=== PATIENT | female | born 1955 | race Hispanic/Latino ===

== ENCOUNTER 2016-09-16 20:28 | Emergency (ER) | payer OTHER, SELFPAY ==
[2016-09-16 21:03] VITALS: RESP 18
[2016-09-16] MEDS ORDERED: Sodium Chloride 0.9% 1,000 ML IV STA (21:19)
[2016-09-16 21:24] LABS: ADD MANUAL DIFF? NO
[2016-09-16 21:29] VITALS: TEMP 98.1
--- NOTE | 2016-09-16 21:32 | ED PDOC ---
Arrival/HPI - History of Present Illness Time/Duration: Prior to Arrival, < week Symptom Onset: Gradual Symptom Course: Unchanged Severity Level: Moderate <Kristofer Lynn - Last Filed: 09/16/16 21:29> <Almaz Olguin - Last Filed: 09/16/16 22:30> - General Chief Complaint: Dizziness/Lightheaded Time Seen by Provider: 09/16/16 21:02 - History of Present Illness Narrative History of Present Illness (Text): 09/16/16 21:29 This is a 61 year old female without PMH presenting to the ED for evaluation of dizziness x 2 days. The patient states that this is her second bout with dizziness. The first episode occurred 2 weeks ago. The patient notes on the initial episode she felt that the room was spinning around her, however, this time, the patient denies rotatory sensation. The patient notes that she feels unseady on her feet. The patient takes no medications at home regularly, however she took 1 dose of aspirin 81mg for the dizziness both yesterday and today without relief. The patient denies headache, fever, chills, changes in vision, chest pain, shortness of breath. (Kristofer Lynn) Past Medical History - Provider Review Nursing Documentation Reviewed: Yes - Travel History Have you recently traveled outside [place] w/in the past 3 mons?: No - Past History Past History: No Previous - Infectious Disease Hx of Infectious Diseases: None - Cardiac Hx Cardiac Disorders: No - Pulmonary Hx Respiratory Disorders: No - Neurological Hx Neurological Disorder: No - HEENT Hx HEENT Disorder: No - Renal Hx Renal Disorder: No - Endocrine/Metabolic Hx Endocrine Disorders: No - Hematological/Oncological Hx Blood Disorders: No - Integumentary Hx Dermatological Disorder: No - Musculoskeletal/Rheumatological Hx Musculoskeletal Disorders: No - Gastrointestinal Hx Gastrointestinal Disorders: No - Genitourinary/Gynecological Hx Genitourinary Disorders: No - Psychiatric Hx Psychophysiologic Disorder: No Hx Substance Use: No - Surgical History Hx Appendectomy: Yes Hx Tonsillectomy: Yes - Anesthesia Hx Anesthesia: Yes Hx Anesthesia Reactions: No <Kristofer Lynn - Last Filed: 09/16/16 21:29> Family/Social History - Physician Review Nursing Documentation Reviewed: Yes Family/Social History: No Known Family HX Smoking Status: Never Smoked Hx Alcohol Use: No Hx Substance Use: No <Kristofer Lynn - Last Filed: 09/16/16 21:29> Allergies/Home Meds <Kristofer Lynn - Last Filed: 09/16/16 21:29> <Almaz Olguin - Last Filed: 09/16/16 22:30> Allergies/Adverse Reactions: Allergies No Known Allergies Allergy (Verified 09/16/16 20:40) Review of Systems - Physician Review All systems were reviewed & negative as marked: Yes - Review of Systems Constitutional: absent: Fatigue, Fevers Eyes: absent: Vision Changes, Eye Pain ENT: absent: Hearing Changes, Tinnitus Respiratory: absent: SOB, Cough, Sputum Cardiovascular: absent: Chest Pain, Palpitations, Syncope Gastrointestinal: Nausea. absent: Abdominal Pain, Stool Changes, Constipation, Diarrhea, Vomiting, Appetite Changes Genitourinary Female: absent: Dysuria, Frequency Musculoskeletal: absent: Arthralgias, Back Pain Skin: absent: Rash, Pruritis Neurological: Dizziness, Disequilibrium. absent: Headache, Focal Weakness, Gait Changes, Speech Changes, Facial Droop, Seizure Endocrine: absent: Diaphoresis Hemo/Lymphatic: absent: Adenopathy Psychiatric: absent: Anxiety <Kristofer Lynn - Last Filed: 09/16/16 21:29> Physical Exam Vital Signs Reviewed: Yes Temperature: Afebrile Blood Pressure: Normal Pulse: Regular Respiratory Rate: Normal Appearance: Positive for: Well-Appearing, Non-Toxic, Comfortable Pain Distress: None Mental Status: Positive for: Alert and Oriented X 3 Finger Stick Blood Glucose: 135 - Systems Exam Head: Present: Atraumatic, Normocephalic Pupils: Present: PERRL Extroacular Muscles: Present: EOMI, Other (nystagmus with lateral gaze) Conjunctiva: Present: Normal. No: Injected Ears: Present: NORMAL TM, Normal Canal, Other (cerumen noted around TM in right canal) Neck: Present: Normal Range of Motion. No: MIDLINE TENDERNESS, Paraspinal Tenderness, JVD, Lymphadenopathy Respiratory/Chest: Present: Clear to Auscultation, Good Air Exchange. No: Respiratory Distress, Accessory Muscle Use Cardiovascular: Present: Regular Rate and Rhythm, Normal S1, S2. No: Murmurs Abdomen: Present: Normal Bowel Sounds. No: Tenderness, Distention, Peritoneal Signs Upper Extremity: Present: Normal Inspection, Normal ROM, NORMAL PULSES, Neurovascularly Intact. No: Cyanosis, Edema, Tenderness, Swelling, Erythema, Deformity Lower Extremity: Present: Normal Inspection, NORMAL PULSES, Normal ROM, Neurovascularly Intact. No: Edema, CALF TENDERNESS, Graham's Sign, Tenderness, Swelling, Erythema Neurological: Present: GCS=15, CN II-XII Intact, Speech Normal, Motor Func Grossly Intact, Normal Sensory Function, Normal Cerebellar Funct, Norm Deep Tendon Reflexes, Gait Normal, Memory Normal Skin: Present: Warm, Dry, Normal Color. No: Rashes Psychiatric: Present: Alert, Oriented x 3, Normal Insight, Normal Concentration <Kristofer Lynn - Last Filed: 09/16/16 21:29> Vital Signs Temp Pulse Resp BP Pulse Ox 09/16/16 20:45 98.1 F 88 18 170/94 H 99 Medical Decision Making - Lab Interpretations I have reviewed the lab results: Yes Interpretation: No clinic. 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 The patient has had a similar episode with resolution in the past. The patient likely has BPV vs orthostasis. Differential: BPV Orthostasis Plan: 1L NS Bolus EKG CBC, CMP, Troponin CXR Meclizine 50mg Zofran 4mg Orthostatic Vital Signs Prior Visits: 12/08/10- cotton in the right ear Progress Note: Patient seen and examined at the bedside. Patient in no acute distress. Patient lying comfortably in bed. Patient has increased dizziness with head turning. Patient has steady gait. The patient's symptoms remit following administration of zofran and meclizine. The patient has negative orthostatic vital signs for change in SBP >20mmHg or DBP >10mmHg. The patient is pending laboratory evaluation. (Kristofer Lynn) 09/16/16 21:48 Patient seen by resident and then evaluated by me. Patient reporting dizziness , described as the room spinning associated with nausea today. She reports symptoms are worse with movement of head. Denies head trauma, chest pain or shortness of breath. She reports similar symptoms 1 week ago. Physical exam positive for horizontal nystagmus and movement of head eliciting symptoms. Normal TM with copious wax in L ear. Patient ambulating with a steady gait. Orthostatic vitals show no change. Presentation consistent with positional vertigo. Will r/o electrolyte abnormality. Will give meclizine and reeval. EKG shows NSR at 89bpm with normal intervals and no ST changes. 09/16/16 21:53 Labs, including electrolytes WNL 09/16/16 22:21 On reevaluation patient reports that she feels better. Will dc to follow-up with Dr. Arora (Almaz Olguin) - Lab Interpretations Lab Results: 09/16/16 20:40 09/16/16 20:40 Lab Results 09/16/16 20:45: POC Glucose (mg/dL) 135 H 09/16/16 20:40: WBC 7.5, RBC 4.69, Hgb 13.5, Hct 39.8, MCV 84.9, MCH 28.8, MCHC 33.9, RDW 13.4, Plt Count 315, MPV 9.7, Gran % 52.6, Lymph % (Auto) 38.0 H, [place] % (Auto) 7.8 H, Eos % (Auto) 1.5, Baso % (Auto) 0.1, Gran # 3.96, Lymph # 2.9, [place] # 0.6, Eos # 0.1, Baso # 0.01, Sodium 140, Potassium 3.7, Chloride 103 , Carbon Dioxide 26, Anion Gap 15, BUN 20, Creatinine 0.8, Est GFR ( Amer ) > 60, Est GFR (Non-Af Amer) > 60, Random Glucose 122 H, Calcium 9.9, Total Bilirubin 0.6, AST 27, ALT 13, Alkaline Phosphatase 75, Total Creatine Kinase 101, Troponin I < 0.01, Total Protein 8.2, Albumin 4.5, Globulin 3.7, Albumin/ Globulin Ratio 1.2 - RAD Interpretation Narrative RAD Interpretations (Text): 09/16/16 21:43 no acute pulmonary pathology (Shane,Kristofer) Radiology Orders: 09/16/16 21:35 CHEST PORTABLE [RAD] Stat - EKG Interpretation EKG Interpretation (Text): 09/16/16 21:43 NSR, normal intervals, normal axis, no ST/T wave changes (Kristofer Lynn) - Medication Orders Current Medication Orders: Discontinued Medications Sodium Chloride (Sodium Chloride 0.9%) 1,000 mls @ 999 mls/hr IV .Q1H1M STA Stop: 09/16/16 22:19 Last Admin: 09/16/16 21:45 Dose: 999 MLS/HR eMAR Start Stop Document 09/16/16 21:45 SB (Rec: 09/16/16 21:45 SB [id number]) Intravenous Solution Start Date 09/16/16 Start Time 21:45 End Date 09/16/16 Meclizine HCl (Antivert) 50 mg PO STAT STA Stop: 09/16/16 21:20 Last Admin: 09/16/16 21:45 Dose: 50 MG Ondansetron HCl (Zofran Inj) 4 mg IVP STAT STA Stop: 09/16/16 21:41 Last Admin: 09/16/16 21:47 Dose: Not Given Non-Admin Reason: Patient Refused Disposition/Present on Arrival - Present on Arrival History of DVT/PE: No History of Uncontrolled Diabetes: No Urinary Catheter: No History of Decub. Ulcer: No History Surgical Site Infection Following: None - Disposition Have Diagnosis and Disposition been Completed?: Yes Disposition Time: 21:30 Patient Plan: Discharge <Kristofer Lynn - Last Filed: 09/16/16 21:29> - Present on Arrival Any Indicators Present on Arrival: No - Disposition Have Diagnosis and Disposition been Completed?: Yes Patient Plan: Discharge <Almaz Olguin - Last Filed: 09/16/16 22:30> - Disposition Diagnosis: BPV (benign positional vertigo) Disposition: HOME/ ROUTINE Patient Problems: Current Active Problems Problem Status Diagnosed BPV (benign positional vertigo) Acute Condition: FAIR Discharge Instructions (ExitCare): Vertigo (ED), Benign Paroxysmal Positional Vertigo (ED) Print Language: MALIAN Additional Instructions: 1.) Follow up with PMD within 2 days following discharge 2.) Maintain adequate hydration 3.) If symptoms return please return to the ED for evaluation 4.) Take Meclizine every 6 hours as needed for vertigo/dizziness Prescriptions: Meclizine [Antivert] 25 mg PO Q6 PRN #20 tab PRN Reason: Dizziness Referrals: Alvina Arora DO [Primary Care Provider] - Follow up with primary
[2016-09-16 21:44] LABS: BASO # 0.01 K/mm3 (0.0-2.0); BASO % 0.1 % (0.0-3.0); EOS # 0.1 (0.0-0.7); EOS % 1.5 % (1.5-5.0); GRAN # 3.96 (1.4-6.5); GRAN % 52.6 % (50.0-68.0); HEMATOCRIT 39.8 % (36.0-48.0); LYMPH # 2.9 (1.2-3.4); MEAN CELL VOLUME 84.9 fL (80.0-105.0); MEAN CORPUSCULAR HEMOGLOBIN 28.8 pg (25.0-35.0); MEAN CORPUSCULAR HGB CONC 33.9 g/dl (31.0-37.0); MEAN PLATELET VOLUME 9.7 fl (7.0-11.0); MONO # 0.6 (0.1-0.6); MONO % 7.8 % (1.0-6.0); PLATELET COUNT 315 10^3/uL (120.0-450.0); RED CELL DISTRIBUTION WIDTH 13.4 % (11.5-14.5); WHITE BLOOD COUNT 7.5 10^3/ul (4.5-11.0)
[2016-09-16 21:46] LABS: ALB/GLOB RATIO 1.2 (1.1-1.8); ALKALINE PHOSPHATASE 75 U/L (38-133); ALT/SGPT 13 U/L (7-56); AST/SGOT 27 U/L (15-39); BILIRUBIN,TOTAL 0.6 mg/dL (0.2-1.3); BLOOD UREA NITROGEN 20 mg/dL (7-21); CALCIUM 9.9 mg/dL (8.4-10.5); CARBON DIOXIDE 26 mmol/L (21-33); CHLORIDE 103 mmol/L (98-107); GFR AFRICAN-AMERICAN > 60; GLUCOSE,RANDOM 122 mg/dL (70-110); POTASSIUM 3.7 mmol/L (3.6-5.0); SODIUM 140 mmol/L (132-148); TOTAL PROTEIN 8.2 g/dL (5.8-8.3)
[2016-09-16 21:58] LABS: TROPONIN I < 0.01 ng/mL
[2016-09-16 22:42] VITALS: BP 153/88; PULSE 76; O2SAT 95
--- NOTE | 2016-09-17 09:27 | RAD ---
HISTORY: DIZZINESS COMPARISON: No prior. FINDINGS: LUNGS: No active pulmonary disease. PLEURA: No significant pleural effusion identified, no pneumothorax apparent. CARDIOVASCULAR: Normal. OSSEOUS STRUCTURES: No significant abnormalities. VISUALIZED UPPER ABDOMEN: Normal. OTHER FINDINGS: None. IMPRESSION: No active disease.
--- NOTE | 2016-09-17 14:26 | CARD ---
APPROVED REPORT EKG Measurement Heart [id number] <Conclusion> Normal sinus rhythm Normal ECG
== END 2016-09-16 22:43 | disposition home or self-care (01) ==
LOC: ED 20:28
DX: H81.10 Benign paroxysmal vertigo, unspecified ear (principal)
CPT/HCPCS: 71010; 80053; 82550; 82948; 84484; 85025; 99285; J7040